=== PATIENT | male | born 1935 | race Caucasian/White ===

== ENCOUNTER 2016-09-27 11:12 | Inpatient (IN) | payer MEDICARE, OTHER ==
[~2016-09-27] VITALS: Ht 177.8 cm; Wt 79.0 kg
[2016-09-27] VITALS (10 sets, daily range): BP systolic 128–159; BP diastolic 47–77; PULSE 76–112; RESP 16–20; TEMP 96–97.4; O2SAT 93–96
--- NOTE | 2016-09-27 11:41 | PD ---
HPI Chief Complaint: General Weakness Time Seen by Provider: 11:31 Travel History International Travel<30 days: No Contact w/Intl Traveler<30days: No Traveled to known affect area: No History of Present Illness HPI Patient presents with complaints of gradual dyspnea and weakness over several weeks. Reports a history of hypertension with medication which he stopped recently secondary to hypotension. History of pulmonary embolism on no anticoagulation. 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 Recent PET scan reveals extensive metastatic adenopathy involving the peritoneum omentum and mesentery with metastatic lymph nodes. Recent biopsy of a growth on his left forearm reveals lymphoma. Denies any specific pain. States he has not been eating or drinking well. PFSH Past Medical History Cancer: Yes (RECENT DX METASTATIC LYMPHOMA) Hypertension: Yes Neurologic: Yes (POST POLIO SYNDROME) Respiratory: Yes (PE) Ulcer: Yes Influenza Vaccination: Yes Past Surgical History Cholecystectomy: Yes Social History Alcohol Use: No Tobacco Use: No Substance Use: No Allergies-Medications (Allergen,Severity, Reaction): Coded Allergies: No Known Allergies (Unverified , 09/27/16) Reported Meds & Prescriptions Reported Meds & Active Scripts Active No Active Prescriptions or Reported Medications Review of Systems General / Constitutional: No: Fever Eyes: No: Visual changes HENT: No: Headaches Cardiovascular: No: Chest Pain or Discomfort Respiratory: Positive: Shortness of Breath Gastrointestinal: Positive: Loss of Appetite, No: Abdominal Pain Genitourinary: No: Dysuria Musculoskeletal: No: Pain Skin: No Rash Neurologic: No: Weakness Psychiatric: No: Depression Endocrine: No: Polydipsia Hematologic/Lymphatic: No: Easy Bruising Physical Exam Narrative GENERAL: Well-nourished, well-developed patient. SKIN: Focused skin assessment warm/dry. HEAD: Normocephalic. EYES: No scleral icterus. No injection or drainage. NECK: Supple, trachea midline. No JVD or lymphadenopathy. CARDIOVASCULAR: Regular rate and rhythm without murmurs, gallops, or rubs. Tachycardic RESPIRATORY: Breath sounds mildly diminished. No accessory muscle use. GASTROINTESTINAL: Abdomen distended, nontender MUSCULOSKELETAL: No cyanosis, or edema. BACK: Nontender without obvious deformity. No CVA tenderness. Large area of lymphoma noted left forearm measuring approximately 8 x 4 cm Muscle wasting and brace noted left lower extremity Data Data Last Documented VS Vital Signs Date Time Temp Pulse Resp B/P Pulse Ox O2 Delivery O2 Flow Rate FiO2 09/27/16 12:25 93 Nasal Cannula 4 09/27/16 12:25 76 20 136/47 09/27/16 11:21 97.4 Orders Complete Blood Count With Diff (09/27/16 11:31) Comprehensive Metabolic Panel (09/27/16 11:31) B-Type Natriuretic Peptide (09/27/16 11:31) D-Dimer (09/27/16 11:31) Magnesium (Mg) (09/27/16 11:31) Urinalysis - C+S If Indicated (09/27/16 11:31) Iv Access Insert/Monitor (09/27/16 11:31) Ecg Monitoring (09/27/16 11:31) Oximetry (09/27/16 11:31) Oxygen Administration (09/27/16 11:31) Chest, Single Ap (09/27/16 11:31) Ct Pulmonary Angiogram (09/27/16 11:31) Sodium Chloride 0.9% Flush (Ns Flush) (09/27/16 11:45) Sodium Chlorid 0.9% 500 Ml Inj (Ns 500 M (09/27/16 11:45) Iohexol 350 Inj (Omnipaque 350 Inj) (09/27/16 13:14) Sodium Chlorid 0.9% 500 Ml Inj (Ns 500 M (09/27/16 13:45) Blood Culture (09/27/16 13:53) Azithromycin Inj (Zithromax Inj) (09/27/16 14:00) Ceftriaxone Inj (Rocephin Inj) (09/27/16 14:00) Methylprednisolone So Succ Inj (Solumedr (09/27/16 14:00) Admit To Inpatient (09/27/16 ) Vital Signs (Adult) Q4H (09/27/16 14:12) Activity Oob With Assistance (09/27/16 14:12) Rivet Thrower / Telemetry .CONTINUOUS (09/27/16 14:12) Diet Regular Basic (09/27/16 Dinner) Sodium Chloride 0.9% Flush (Ns Flush) (09/27/16 14:15) Sodium Chloride 0.9% Flush (Ns Flush) (09/27/16 21:00) Ondansetron Inj (Zofran Inj) (09/27/16 14:15) Basic Metabolic Panel (Bmp) (09/28/16 06:00) Complete Blood Count With Diff (09/28/16 06:00) Enoxaparin Inj (Lovenox Inj) (09/27/16 15:00) Naloxone Inj (Narcan Inj) (09/27/16 14:15) Inpatient Certification (09/27/16 ) Admit Order (Ed Use Only) (09/27/16 ) Vital Signs (Adult) Q4H (09/27/16 14:09) Diet Heart Healthy (09/27/16 Dinner) Activity Oob With Assistance (09/27/16 14:09) ^ Saline Lock (09/27/16 14:09) Resp Oxygen Jeff C Titrat 1-4 L (09/27/16 ) Notify Dr: Other (09/27/16 14:09) Ondansetron Inj (Zofran Inj) (09/27/16 14:15) Acetaminophen (Tylenol) (09/27/16 14:15) Sodium Chloride 0.9% Flush (Ns Flush) (09/27/16 21:00) Sodium Chloride 0.9% Flush (Ns Flush) (09/27/16 14:15) Labs Laboratory Tests Test 09/27/16 11:30 White Blood Count 11.8 TH/MM3 Red Blood Count 4.41 MIL/MM3 Hemoglobin 13.1 GM/DL Hematocrit 38.7 % Mean Corpuscular Volume 87.8 FL Mean Corpuscular Hemoglobin 29.8 PG Mean Corpuscular Hemoglobin 33.9 % Concent Red Cell Distribution Width 13.7 % Platelet Count 311 TH/MM3 Mean Platelet Volume 8.1 FL Neutrophils (%) (Auto) 83.1 % Lymphocytes (%) (Auto) 6.2 % Monocytes (%) (Auto) 7.7 % Eosinophils (%) (Auto) 1.3 % Basophils (%) (Auto) 1.7 % Neutrophils # (Auto) 9.8 TH/MM3 Lymphocytes # (Auto) 0.7 TH/MM3 Monocytes # (Auto) 0.9 TH/MM3 Eosinophils # (Auto) 0.2 TH/MM3 Basophils # (Auto) 0.2 TH/MM3 CBC Comment AUTO DIFF Differential Total Cells 100 Counted Neutrophils % (Manual) 83 % Band Neutrophils % 4 % Lymphocytes % 4 % Monocytes % 6 % Eosinophils % 2 % Basophils % 1 % Neutrophils # (Manual) 10.3 TH/MM3 Differential Comment FINAL DIFF MANUAL Platelet Estimate NORMAL Platelet Morphology Comment NORMAL Red Cell Morphology Comment NORMAL D-Dimer Quantitative (PE/DVT) 2.52 MG/L FEU Sodium Level 141 MEQ/L Potassium Level 3.6 MEQ/L Chloride Level 103 MEQ/L Carbon Dioxide Level 26.7 MEQ/L Anion Gap 11 MEQ/L Blood Urea Nitrogen 30 MG/DL Creatinine 1.20 MG/DL Estimat Glomerular Filtration 58 ML/MIN Rate Random Glucose 128 MG/DL Calcium Level 9.1 MG/DL Magnesium Level 2.1 MG/DL Total Bilirubin 1.2 MG/DL Aspartate Amino Transf 49 U/L (AST/SGOT) Alanine Aminotransferase 29 U/L (ALT/SGPT) Alkaline Phosphatase 79 U/L B-Type Natriuretic Peptide 32 PG/ML Total Protein 6.5 GM/DL Albumin 2.7 GM/DL MDM Medical Decision Making Medical Screen Exam Complete: Yes Emergency Medical Condition: Yes Differential Diagnosis Metastatic lung cancer, pulmonary embolism, dehydration, sinus tachycardia, hypertension, heart failure Narrative Course Assessment and plan discussed with patient at bedside. Initial EKG reveals sinus tachycardia with frequent PVCs rate of 130. Last 72 hours Impressions Chest X-Ray 09/27/161130 Signed Impressions: Service Date/Time: Tuesday, September 27, 2016 11:43 - CONCLUSION: No acute cardiopulmonary disease identified. Edy Jefferson MD CT Angiography 09/27/16 113 Signed Impressions: Service Date/Time: Tuesday, September 27, 2016 12:45 - CONCLUSION: 1. No evidence of pulmonary embolus. 2. Mild right lower lobe consolidation and small right pleural effusion. Mild left lower lobe atelectasis. 3. Coronary artery calcification. 4. Mildly prominent as azygoesophageal lymph node likely reactive. Edy Jefferson MD Physician Communication Physician Communication Spoke with Dr Lopez who is in agreement will admit Diagnosis Primary Impression: RLL pneumonia Qualified Code: J18.1 - Pneumonia of right lower lobe due to infectious organism Additional Impressions: Leucocytosis Qualified Code: D72.829 - Leukocytosis, unspecified type Tachycardia Admitting Information Admitting Physician Requests: Admit Scripts No Active Prescriptions or Reported Meds Thomas Ramirez MD September 27, 2016 11:40
[2016-09-27 11:45] LABS: AUTOMATED NEUTROPHIL # 9.8 TH/MM3 (1.8-7.7); BASOPHIL # 0.2 TH/MM3 (0-0.2); BASOPHIL % 1.7 % (0.0-2.0); EOSINOPHIL # 0.2 TH/MM3 (0-0.4); EOSINOPHIL % 1.3 % (0.0-4.0); HEMATOCRIT 38.7 % (39.0-51.0); LYMPH % 6.2 % (9.0-44.0); LYMPHOCYTE # 0.7 TH/MM3 (1.0-4.8); MEAN CELL VOLUME 87.8 FL (80.0-100.0); MEAN CORPUSCULAR HEMOGLOBIN 29.8 PG (27.0-34.0); MEAN CORPUSCULAR HGB CONC 33.9 % (32.0-36.0); MONO % 7.7 % (0.0-8.0); NEUT % 83.1 % (16.0-70.0); PLATELET COUNT 311 TH/MM3 (150-450); RED BLOOD COUNT 4.41 MIL/MM3 (4.50-5.90); RED CELL DISTRIBUTION WIDTH 13.7 % (11.6-17.2); WHITE BLOOD COUNT 11.8 TH/MM3 (4.0-11.0)
[2016-09-27] MEDS ORDERED: SODIUM CHLORID 0.9% 500 ML INJ 500 ML IV ONE ×2 (11:45→13:45)
[2016-09-27] MEDS ORDERED: SODIUM CHLORIDE 0.9% FLUSH 10 ML FLUSH IVF PRN ×2 (11:45→14:15)
[2016-09-27 11:54] LABS: HEMO FLAGS AUTO DIFF
[2016-09-27 12:07] LABS: BANDS 4 % (0-6); BASOPHILS 1 % (0-2); CHLORIDE 103 MEQ/L (98-107); EOSINOPHILS 2 % (0-4); NEUTROPHIL # MANUAL DIFF 10.3 TH/MM3 (1.8-7.7); PLATELET ESTIMATE SMEAR NORMAL (NORMAL); PLATELET MORPHOLOGY NORMAL (NORMAL); POLYS (SEG NEUTROPHILS) 83 % (16-70); POTASSIUM 3.6 MEQ/L (3.5-5.1); SCAN/DIFF FINAL DIFF MANUAL; SODIUM (NA) 141 MEQ/L (136-145); WBC DIFF SAMPLE 100
[2016-09-27 12:11] LABS: ANION GAP 11 MEQ/L (5-15); BICARBONATE 26.7 MEQ/L (21.0-32.0); BLOOD UREA NITROGEN 30 MG/DL (7-18); MAGNESIUM 2.1 MG/DL (1.5-2.5)
[2016-09-27 12:14] LABS: ALT (GPT) 29 U/L (12-78); AST (GOT) 49 U/L (15-37); GLOMERULAR FILTRATION RATE 58 ML/MIN (>89)
[2016-09-27 12:15] LABS: TOTAL BILIRUBIN ADULT 1.2 MG/DL (0.2-1.0)
[2016-09-27 12:17] LABS: ALKALINE PHOSPHATASE 79 U/L (45-117)
--- NOTE | 2016-09-27 12:48 | RADHPO ---
EXAM DATE/TIME: 09/27/2016 11:43 [facility] COMPARISON: No previous studies available for comparison. INDICATIONS : Shortness of breath, weakness. MEDICAL HISTORY : Lymphoma. Pulmonary emboli. Abdominal mass. SURGICAL HISTORY : Cholecystectomy. ENCOUNTER: Initial ACUITY: 1 day PAIN SCORE: 0/10 LOCATION: Chest. FINDINGS: Single AP view of the chest. The lungs are clear. Cardiomediastinal silhouette within normal limits. No evidence of pleural effusion or pneumothorax. CONCLUSION: No acute cardiopulmonary disease identified. Edy Jefferson MD on September 27, 2016 at 12:46 Board Certified Radiologist. This report was verified electronically.
[2016-09-27] MEDS ORDERED: IOHEXOL 350 MG/ML 10 ML VIAL (for RAD DIAG) IV ONE (13:14)
--- NOTE | 2016-09-27 13:50 | RADHPO ---
EXAM DATE/TIME: 09/27/2016 12:45 [facility] COMPARISON: No previous studies available for comparison. INDICATIONS : Increased dyspnea and weakness; recent diagnosis of metastatic lymphoma. IV CONTRAST: 73 cc Omnipaque 350 (iohexol) IV RADIATION DOSE: 18.98 CTDIvol (mGy) MEDICAL HISTORY : Lymphoma. Hypertension. Ulcers.Pulmonary embolism. SURGICAL HISTORY : None. ENCOUNTER: Initial ACUITY: 2 weeks PAIN SCALE: 0/10 LOCATION: chest TECHNIQUE: Volumetric scanning of the chest was performed using a pulmonary embolism protocol MIP images were re constructed. Using automated exposure control and adjustment of the mA and/or kV according to patien t size, radiation dose was kept as low as reasonably achievable to obtain optimal diagnostic quality images. FINDINGS: PULMONARY ARTERIES: No filling defects are seen in the pulmonary arteries through the segmental level. LUNGS: Inferior right lower lobe consolidation. Mild bilateral pulmonary parenchymal emphysema. Mild left lo wer lobe atelectasis. PLEURAE: Small right pleural effusion. MEDIASTINUM: Coronary artery calcifications. Diffuse aortic calcification. 1.1 x 0.8 cm azygoesophageal lymph node . MUSCULOSKELETAL: Within normal limits for patient age. MISCELLANEOUS: Small amount of ascites in the upper abdomen. CONCLUSION: 1. No evidence of pulmonary embolus. 2. Mild right lower lobe consolidation and small right pleural effusion. Mild left lower lobe atelect asis. 3. Coronary artery calcification. 4. Mildly prominent as azygoesophageal lymph node likely reactive. Edy Jefferson MD on September 27, 2016 at 13:43 Board Certified Radiologist. This report was verified electronically.
[2016-09-27] MEDS ORDERED: AZITHROMYCIN INJ 500 MG in SODIUM CHLOR 0.9% 250 ML INJ 250 ML IV ONE (14:00)
[2016-09-27] MEDS ORDERED: methylPREDNISolone SOD SUCC 125 MG/2 ML VIAL IV PUSH ONE (14:00)
[2016-09-27] MEDS ORDERED: cefTRIAXone INJ 1,000 MG in SODIUM CHLORIDE 0.9% INJ 100 ML IV ONE (14:00)
[2016-09-27] MEDS ORDERED: ONDANSETRON HCL 4 MG/2 ML VIAL IVP PRN (14:15)
[2016-09-27] MEDS ORDERED: NALOXONE HCL 0.4 MG/ML AMP IV PRN (14:15)
[2016-09-27] MEDS ORDERED: SODIUM CHLORIDE 0.9% FLUSH 10 ML FLUSH IV FLUSH PRN (14:15)
[2016-09-27] MEDS ORDERED: ONDANSETRON HCL 4 MG/2 ML VIAL IV PRN (14:15)
[2016-09-27] MEDS ORDERED: ACETAMINOPHEN 325 MG TAB PO PRN (14:15)
[2016-09-27] MEDS ORDERED: ENOXAPARIN SODIUM 40 MG/0.4 ML SYRINGE SQ SCH (15:00)
--- NOTE | 2016-09-27 15:39 | HHI.HP ---
HPI Service [facility] Primary Care Physician Gen Slaughter DO Admission Diagnosis RLL pneumonia Diagnoses: (1) RLL pneumonia (2) Tachycardia (3) Leucocytosis (4) Lymphoma (5) HTN (hypertension) Travel History International Travel<30 Days: No Contact w/Intl Traveler <30 Da: No Traveled to Known Affected Are: No Sepsis Criteria SIRS Criteria (2 or more): Heart rate over 90, RR > 20 or PaCO2 < 32 Sepsis Criteria (SIRS+source): Infect source susp/known History of Present Illness Mr. Rivera is a 81 year old male. He has lymphoma at baseline. Over the past several days he has been feeling fatigue and weakness and for about one week she has been having intermittent sweats. He is not aware of any fever. She denies chills. Imaging in the ER shows a right lower lobe pneumonia. Tachycardia, tachypnea, and a known source qualifies him for sepsis. D-dimer was elevated but CTA of chest shows no pulmonary embolism. The CTA did confirm pneumonia right lower lobe. At baseline he has hypertension and lymphoma with a mass burden in the abdomen. Past surgical histories of cholecystectomy and ulcer surgery of the stomach. She has had a pulmonary embolism in 2013. Tachycardia and tachypnea remaining ones seen. No fevers so far. No other complaints from the patient. Since lymphoma was discovered his blood pressure has been lower and he has been off of all his blood pressure medications. Review of Systems Constitutional: COMPLAINS OF: Fatigue, Night Sweats, DENIES: Fever, Chills Endocrine: DENIES: Heat/cold intolerance, Polyphagia Eyes: DENIES: Blurred vision, Diplopia Ears, nose, mouth, throat: DENIES: Hearing loss, Vertigo Respiratory: COMPLAINS OF: Shortness of breath, DENIES: Cough, Wheezing Cardiovascular: DENIES: Chest pain, Palpitations, Syncope Gastrointestinal: COMPLAINS OF: Abdominal pain Musculoskeletal: DENIES: Joint pain, Muscle aches Integumentary: DENIES: Abnormal pigmentation Hematologic/lymphatic: DENIES: Bruising Immunologic/allergic: DENIES: Eczema Neurologic: DENIES: Abnormal gait, Headache Psychiatric: DENIES: Anxiety, Confusion, Mood changes Past Family Social History Past Medical History Hypertension Lymphoma History of pulmonary malaise and History of ulcer Past Surgical History Stomach ulcer surgery Cholecystectomy Reported Medications Reported Meds & Active Scripts Active No Active Prescriptions or Reported Medications Allergies: Coded Allergies: No Known Allergies (Unverified , 09/27/16) Family History His father had a known heart disease and COPD Social History No smoking, no alcohol, no drug use. Physical Exam Vital Signs Vital Signs Date Time Temp Pulse Resp B/P Pulse Ox O2 Delivery O2 Flow Rate FiO2 09/27/16 14:30 95 Nasal Cannula 3.00 09/27/16 14:20 111 18 139/52 94 Nasal Cannula 4 09/27/16 12:25 93 Nasal Cannula 4 09/27/16 12:25 76 20 136/47 93 Nasal Cannula 4 09/27/16 11:30 95 Nasal Cannula 2 09/27/16 11:30 95 Nasal Cannula 2 09/27/16 11:30 115 22 95 Nasal Cannula 2 09/27/16 11:21 97.4 102 20 159/77 94 Physical Exam GENERAL: NAD, A&Ox3 SKIN: Warm and dry. HEAD: Normocephalic. EYES: No scleral icterus. No injection or drainage. NECK: Supple, trachea midline. No JVD or lymphadenopathy. CARDIOVASCULAR: Mild tachycardia without murmurs, gallops, or rubs. RESPIRATORY: Breath sounds equal bilaterally. No accessory muscle use. GASTROINTESTINAL: Abdomen soft, non-tender, nondistended. MUSCULOSKELETAL: No cyanosis, or edema. Laboratory Laboratory Tests Test 09/27/16 11:30 White Blood Count 11.8 Red Blood Count 4.41 Hemoglobin 13.1 Hematocrit 38.7 Mean Corpuscular Volume 87.8 Mean Corpuscular Hemoglobin 29.8 Mean Corpuscular Hemoglobin 33.9 Concent Red Cell Distribution Width 13.7 Platelet Count 311 Mean Platelet Volume 8.1 Neutrophils (%) (Auto) 83.1 Lymphocytes (%) (Auto) 6.2 Monocytes (%) (Auto) 7.7 Eosinophils (%) (Auto) 1.3 Basophils (%) (Auto) 1.7 Neutrophils # (Auto) 9.8 Lymphocytes # (Auto) 0.7 Monocytes # (Auto) 0.9 Eosinophils # (Auto) 0.2 Basophils # (Auto) 0.2 CBC Comment AUTO DIFF Differential Total Cells 100 Counted Neutrophils % (Manual) 83 Band Neutrophils % 4 Lymphocytes % 4 Monocytes % 6 Eosinophils % 2 Basophils % 1 Neutrophils # (Manual) 10.3 Differential Comment FINAL DIFF MANUAL Platelet Estimate NORMAL Platelet Morphology Comment NORMAL Red Cell Morphology Comment NORMAL D-Dimer Quantitative (PE/DVT) 2.52 Sodium Level 141 Potassium Level 3.6 Chloride Level 103 Carbon Dioxide Level 26.7 Anion Gap 11 Blood Urea Nitrogen 30 Creatinine 1.20 Estimat Glomerular Filtration 58 Rate Random Glucose 128 Calcium Level 9.1 Magnesium Level 2.1 Total Bilirubin 1.2 Aspartate Amino Transf 49 (AST/SGOT) Alanine Aminotransferase 29 (ALT/SGPT) Alkaline Phosphatase 79 B-Type Natriuretic Peptide 32 Total Protein 6.5 Albumin 2.7 Date/Time Procedure Status Source Growth 09/27/16 14:15 Aerobic Blood Culture Received Blood Peripheral Pending 09/27/16 14:15 Anaerobic Blood Culture Received Blood Peripheral Pending Result Diagram: 09/27/16 1130 09/27/16 1130 Imaging Last Impressions Chest X-Ray 09/27/16 1131 Signed Impressions: Service Date/Time: Tuesday, September 27, 2016 11:43 - CONCLUSION: No acute cardiopulmonary disease identified. Edy Jefferson MD CT Angiography 09/27/16 1131 Signed Impressions: Service Date/Time: Tuesday, September 27, 2016 12:45 - CONCLUSION: 1. No evidence of pulmonary embolus. 2. Mild right lower lobe consolidation and small right pleural effusion. Mild left lower lobe atelectasis. 3. Coronary artery calcification. 4. Mildly prominent as azygoesophageal lymph node likely reactive. Edy Jefferson MD Septic Shock Reassessment Heart: Other (tachycardia) Lungs: Clear Skin: Warm Peripheral Pulses: Bounding Right Radial Bounding Left Radial Capillary Refill: Brisk Assessment and Plan Problem List: (1) HTN (hypertension) ICD Code: I10 Status: Acute (2) Lymphoma ICD Code: C85.90 Status: Acute (3) RLL pneumonia ICD Code: J18.1 Status: Acute (4) Tachycardia ICD Code: R00.0 Status: Acute (5) Leucocytosis ICD Code: D72.829 Status: Acute Assessment and Plan Right lower lobe pneumonia Sepsis Rocephin Azithromycin Probiotics Oxygen as needed Follow clinically for improvement Monitor CBC Monitor to tachycardia and tachypnea are resolved Ensure no fevers Some degree of immune compromise is present given burden of lymphoma Lymphoma Follow clinically Follow with outpatient oncology Not on active chemotherapy at this time Hypertension Follow blood pressures Not currently on treatment History of ulcer Daily Protonix for prophylaxis DVT prophylaxis History of pulmonary embolus Lovenox Physician Certification 2 Midnight Certification Type: Admission for Inpatient Services Order for Inpatient Services The services are ordered in accordance with Medicare regulations or non- Medicare payer requirements, as applicable. In the case of services not specified as inpatient-only, they are appropriately provided as inpatient services in accordance with the 2-midnight benchmark. Estimated LOS (days): 2 days is the estimated time the patient will need to remain in the hospital, assuming treatment plan goals are met and no additional complications. Post-Hospital Plan: Home Problem Qualifiers (1) RLL pneumonia: Qualified Code: J18.1 - Pneumonia of right lower lobe due to infectious organism (2) Leucocytosis: Qualified Code: D72.829 - Leukocytosis, unspecified type Hong Lopez MD September 27, 2016 3:39 pm
[2016-09-27] MEDS ORDERED: DORZ2SOL EACH EYE (15:58)
[2016-09-27] MEDS: LACTOBACILLUS ACIDOPHILUS TAB PO SCH (17:00)
[2016-09-27] MEDS ORDERED: HYDROmorphone HCL PF 1 MG/ML VIAL IV PUSH PRN (17:30)
[2016-09-27] MEDS ORDERED: METOCLOPRAMIDE HCL 10 MG/2 ML VIAL IV PUSH PRN (17:30)
[2016-09-27] MEDS ORDERED: ALUMINUM/MAGNESIUM/SIMETH 30 ML CUP PO PRN (17:30)
[2016-09-27] MEDS: SODIUM CHLORIDE 0.9% FLUSH 10 ML FLUSH IV FLUSH SCH ×2 (21:00→21:33)
[2016-09-27] MEDS: DORZOLAMIDE 2% OPTH SOLN 200 DROP/10 ML BTLO EACH EYE SCH (21:32)
[2016-09-27 22:21] LABS: BLOOD, URINE TRACE (NEG); GLUCOSE,URINE 100 mg/dL (NEG); KETONE, URINE 15 mg/dL (NEG); NITRITE,URINE NEG (NEG); PH, URINE 5.5 (5.0-8.5)
[2016-09-27 22:28] LABS: URINE COLOR AMBER (YELLW/STRAW)
[2016-09-27 22:29] LABS: SQUAMOUS EPITHELIAL CELL URINE 0-5 /hpf (0-5); WBC, URINE 0-2 /hpf (0-5)
[2016-09-27 22:30] LABS: COMMENT (UR) CULT NOT INDICATED; CULTURE IF INDICATED CULT NOT INDICATED
[2016-09-28 00:44] VITALS: BP 125/72; PULSE 85; RESP 22; TEMP 96.1; O2SAT 95
[2016-09-28 04:09] VITALS: BP 116/72; PULSE 92; RESP 14; TEMP 98.2; O2SAT 95
[2016-09-28 07:50] LABS: AUTOMATED NEUTROPHIL # 7.5 TH/MM3 (1.8-7.7); BASOPHIL % 0.2 % (0.0-2.0); EOSINOPHIL % 0.5 % (0.0-4.0); HEMATOCRIT 36.2 % (39.0-51.0); HEMO FLAGS DIFF FINAL; LYMPH % 6.6 % (9.0-44.0); LYMPHOCYTE # 0.6 TH/MM3 (1.0-4.8); MEAN CELL VOLUME 88.2 FL (80.0-100.0); MEAN CORPUSCULAR HEMOGLOBIN 30.3 PG (27.0-34.0); MEAN CORPUSCULAR HGB CONC 34.4 % (32.0-36.0); NEUT % 86.7 % (16.0-70.0); PLATELET COUNT 299 TH/MM3 (150-450); RED BLOOD COUNT 4.11 MIL/MM3 (4.50-5.90); RED CELL DISTRIBUTION WIDTH 13.7 % (11.6-17.2); WHITE BLOOD COUNT 8.6 TH/MM3 (4.0-11.0)
[2016-09-28 07:52] LABS: POTASSIUM 4.2 MEQ/L (3.5-5.1)
[2016-09-28 07:55] LABS: BICARBONATE 26.1 MEQ/L (21.0-32.0)
[2016-09-28 08:00] VITALS: BP 131/74; PULSE 96; RESP 20; TEMP 96.9; O2SAT 93; O2SAT 95
[2016-09-28] MEDS: DORZOLAMIDE 2% OPTH SOLN 200 DROP/10 ML BTLO EACH EYE SCH (08:51)
[2016-09-28] MEDS: SODIUM CHLORIDE 0.9% FLUSH 10 ML FLUSH IV FLUSH SCH ×2 (08:51→08:52)
[2016-09-28] MEDS: LACTOBACILLUS ACIDOPHILUS TAB PO SCH ×2 (08:52→11:29)
[2016-09-28] MEDS ORDERED: PANTOPRAZOLE SOD 40 MG DELAYED RELEASE TAB PO SCH (09:00)
[2016-09-28] MEDS ORDERED: AZIT500T2 PO (10:37)
[2016-09-28] MEDS ORDERED: AUGM875T PO (10:37)
[2016-09-28] MEDS ORDERED: LACTTAB8 PO (10:37)
--- NOTE | 2016-09-28 10:41 | HHI.DS ---
Discharge Summary Admission Date September 27, 2016 at 2:31 pm Discharge Date: September 28, 2016 Admitting Diagnosis RLL pneumonia (1) HTN (hypertension) ICD Code: I10 Diagnosis: Secondary (2) Lymphoma ICD Code: C85.90 Diagnosis: Secondary (3) RLL pneumonia ICD Code: J18.1 Diagnosis: Principal (4) Tachycardia ICD Code: R00.0 Diagnosis: Secondary (5) Leucocytosis ICD Code: D72.829 Diagnosis: Secondary Procedures none Brief History - From Admission Mr. Rivera is a 81 year old male. He has lymphoma at baseline. Over the past several days he has been feeling fatigue and weakness and for about one week she has been having intermittent sweats. He is not aware of any fever. She denies chills. Imaging in the ER shows a right lower lobe pneumonia. Tachycardia, tachypnea, and a known source qualifies him for sepsis. D-dimer was elevated but CTA of chest shows no pulmonary embolism. The CTA did confirm pneumonia right lower lobe. At baseline he has hypertension and lymphoma with a mass burden in the abdomen. Past surgical histories of cholecystectomy and ulcer surgery of the stomach. She has had a pulmonary embolism in 2013. Tachycardia and tachypnea remaining ones seen. No fevers so far. No other complaints from the patient. Since lymphoma was discovered his blood pressure has been lower and he has been off of all his blood pressure medications. CBC/BMP: 09/28/16 0719 09/28/16 0719 Significant Findings Laboratory Tests Test 09/27/16 09/27/16 09/28/16 11:30 21:00 07:19 White Blood Count 11.8 TH/MM3 (4.0-11.0) Red Blood Count 4.41 MIL/MM3 4.11 MIL/MM3 (4.50-5.90) (4.50-5.90) Hematocrit 38.7 % 36.2 % (39.0-51.0) (39.0-51.0) Neutrophils (%) (Auto) 83.1 % 86.7 % (16.0-70.0) (16.0-70.0) Lymphocytes (%) (Auto) 6.2 % 6.6 % (9.0-44.0) (9.0-44.0) Neutrophils # (Auto) 9.8 TH/MM3 (1.8-7.7) Lymphocytes # (Auto) 0.7 TH/MM3 0.6 TH/MM3 (1.0-4.8) (1.0-4.8) Neutrophils % (Manual) 83 % (16-70) Lymphocytes % 4 % (9-44) Neutrophils # (Manual) 10.3 TH/MM3 (1.8-7.7) D-Dimer Quantitative (PE/DVT) 2.52 MG/L FEU (0.00-0.50) Blood Urea Nitrogen 30 MG/DL (7-18) 34 MG/DL (7-18) Estimat Glomerular Filtration 58 ML/MIN (>89) 72 ML/MIN (>89) Rate Random Glucose 128 MG/DL 170 MG/DL (74-106) (74-106) Total Bilirubin 1.2 MG/DL (0.2-1.0) Aspartate Amino Transf 49 U/L (15-37) (AST/SGOT) Albumin 2.7 GM/DL (3.4-5.0) Urine Color DEON (YELLW/STRAW) Urine Specific [place] GREATER THAN 1.035 (1.002-1.035) Urine Protein 30 mg/dL (NEG-TRACE) Urine Glucose (UA) 100 mg/dL (NEG) Urine Ketones 15 mg/dL (NEG) Urine Occult Blood TRACE (NEG) Urine RBC 4-9 /hpf (0-3) Hemoglobin 12.5 GM/DL (13.0-17.0) PE at Discharge GENERAL: NAD, A&Ox3 SKIN: Warm and dry. HEAD: Normocephalic. EYES: No scleral icterus. No injection or drainage. NECK: Supple, trachea midline. No JVD or lymphadenopathy. CARDIOVASCULAR: Regular rate and rhythm without murmurs, gallops, or rubs. RESPIRATORY: Breath sounds equal bilaterally. No accessory muscle use. GASTROINTESTINAL: Abdomen soft, non-tender, distention secondary to mass effect (baseline) MUSCULOSKELETAL: No cyanosis, or edema. Hospital Course Mr. Rivera is a 81-year-old male who was admitted here with right lower lobe pneumonia. Sepsis was present admitted but has resolved now. He has resolution of his leukocytosis and respirations and heart rate have returned to his baseline. He has exhibited no fevers. His symptoms which included abdominal pain and nausea with vomiting have resolved. Lymphoma is present and complicated his scenario. The patient would like to leave so he can keep his oncology appointment tomorrow. At this point with resolution of sepsis and resolution of his symptoms she is medically stable for discharge. She will continue on azithromycin and Augmentin for 7 more days. Probiotics provided. Pt Condition on Discharge: Stable Discharge Disposition: Discharge Home Discharge Time: <= 30 minutes Discharge Instructions Follow up Referrals: Oncology - Next Day PCP Follow-up - 1 Week New Medications: Amoxicillin-Clavulanate (Augmentin) 875-125 mg Tab 875 MG PO BID not for use in CrCl <30 ml/min. Infection #14 Ref 0 TAB Azithromycin (Azithromycin) 500 Mg Tab 500 MG PO DAILY Infection #7 Ref 0 TAB Lactobacillus Acidophilus (Lactobacillus Acidophilus) 1 Tab Tab 1 TAB PO TIDAC Nutritional Supplement #30 Ref 0 TAB Continued Medications: Dorzolamide Opth Drops (Dorzolamide Opth Drops) 2% Soln 1 DROP EACH EYE BID Glaucoma #1 Ref 0 BOTTLE Hong Lopez MD September 28, 2016 10:41 am
[2016-09-28] MEDS ORDERED: cefTRIAXone INJ 1,000 MG in SODIUM CHLORIDE 0.9% INJ 100 ML IV SCH ×2 (11:00→13:00)
[2016-09-28 12:00] VITALS: BP 116/72; PULSE 92; RESP 20; TEMP 96.5; O2SAT 93
[2016-09-28] MEDS ORDERED: AZITHROMYCIN INJ 500 MG in SODIUM CHLOR 0.9% 250 ML INJ 250 ML IV SCH ×2 (12:00→14:00)
--- NOTE | 2016-09-28 16:55 | EKG ---
Date Performed: 09/27/2016 Time Performed: 11:16:22 PTAGE: 81 years EKG: Irregular supraventricular tachycardia, most likely sinus tachycardia with PACs and PVCs Le ft axis deviation Nonspecific ST-T wave changes Abnormal ECG NO PREVIOUS TRACING DOCTOR: Eveline Damon Interpretating Date/Time 09/28/2016 16:52:44
== END 2016-09-28 15:34 | disposition home or self-care (01) | DRG 871 ==
LOC: PHED 11:12 → PHEDA 14:31 → PH3B 15:00
PROVIDERS: ADMIT Hospitalist; ATTEND Hospitalist
DX: A41.9 Sepsis, unspecified organism (principal); J18.9 Pneumonia, unspecified organism; C85.93 Non-Hodgkin lymphoma, unspecified, intra-abdominal lymph nodes; B91 Sequelae of poliomyelitis; I10 Essential (primary) hypertension; Z86.711 Personal history of pulmonary embolism
CPT/HCPCS: 71010; 71275; 80048; 80053; 81001; 83735; 83880; 85007; 85025; 85027; 85379; 87040; 93005; 96360; J0456; J0696; J1170; J1650; J2765; J2930; J7040; J7050; Q9967

== ENCOUNTER 2017-02-18 07:46 | Observation (INO) | payer MEDICARE, OTHER ==
[~2017-02-18] VITALS: Ht 177.8 cm; Wt 69.5 kg
[2017-02-18] VITALS (7 sets, daily range): BP systolic 118–156; BP diastolic 52–84; PULSE 94–114; RESP 18–21; TEMP 95.4–100; O2SAT 90–98
[~2017-02-18 07:46] MED LIST: AUGM875T PO; AZIT500T2 PO; DORZ2SOL EACH EYE; LACTTAB8 PO
[2017-02-18] MEDS ORDERED: SODIUM CHLOR 0.9% 1000 ML INJ 1,000 ML IV ONE ×2 (07:49→08:45)
[2017-02-18] MEDS ORDERED: ACETAMINOPHEN 325 MG TAB PO ONE ×2 (08:00→09:45)
[2017-02-18 08:06] LABS: AUTOMATED NEUTROPHIL # 8.5 TH/MM3 (1.8-7.7); BASOPHIL # 0.1 TH/MM3 (0-0.2); BASOPHIL % 0.9 % (0.0-2.0); EOSINOPHIL # 0.1 TH/MM3 (0-0.4); EOSINOPHIL % 0.9 % (0.0-4.0); HEMATOCRIT 32.6 % (39.0-51.0); HEMO FLAGS DIFF FINAL; LYMPH % 2.7 % (9.0-44.0); LYMPHOCYTE # 0.3 TH/MM3 (1.0-4.8); MEAN CELL VOLUME 92.5 FL (80.0-100.0); MEAN CORPUSCULAR HEMOGLOBIN 30.3 PG (27.0-34.0); MEAN CORPUSCULAR HGB CONC 32.8 % (32.0-36.0); MONO % 8.9 % (0.0-8.0); NEUT % 86.6 % (16.0-70.0); PLATELET COUNT 195 TH/MM3 (150-450); RED BLOOD COUNT 3.53 MIL/MM3 (4.50-5.90); WHITE BLOOD COUNT 9.9 TH/MM3 (4.0-11.0)
[2017-02-18 08:15] LABS: CHLORIDE 106 MEQ/L (98-107); POTASSIUM 4.1 MEQ/L (3.5-5.1); SODIUM (NA) 139 MEQ/L (136-145)
[2017-02-18 08:18] LABS: ANION GAP 10 MEQ/L (5-15); APTT (PATIENT) 27.5 SEC (24.3-30.1); BICARBONATE 22.6 MEQ/L (21.0-32.0); INTERNATIONAL NORMALIZED RATIO 0.9 RATIO; PROTHROMBIN TIME - PATIENT 10.4 SEC (9.8-11.6)
[2017-02-18 08:19] LABS: BLOOD UREA NITROGEN 28 MG/DL (7-18)
[2017-02-18 08:21] LABS: ALT (GPT) 19 U/L (12-78); AST (GOT) 22 U/L (15-37)
[2017-02-18 08:22] LABS: GLOMERULAR FILTRATION RATE 88 ML/MIN (>89)
[2017-02-18 08:23] LABS: TOTAL BILIRUBIN ADULT 0.7 MG/DL (0.2-1.0)
[2017-02-18 08:24] LABS: ALKALINE PHOSPHATASE 70 U/L (45-117)
[2017-02-18 08:27] LABS: CREATINE KINASE 27 U/L (39-308)
--- NOTE | 2017-02-18 08:31 | PD ---
HPI Chief Complaint: Cold / Flu Symptoms Time Seen by Provider: 07:49 Travel History International Travel<30 days: No Contact w/Intl Traveler<30days: No Traveled to known affect area: No History of Present Illness HPI Patient is a 81 year old male who comes in complaining of shaking. He says that he woke up this morning with uncontrollable shaking. He says this happened once before about a week ago, but it went away quickly. Today it has been lasting. He denies feeling cold, but says he cannot stop shivering. He denies fever at home. He finished chemo for lymphoma three weeks ago. He says he was on antibiotics for a cough, which he finished yesterday. He still has the cough and some SOB. He denies any chest pain. He denies abdominal pain, nausea or vomiting. 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) Psychiatric: No Reproductive: No Respiratory: Yes (PE) Ulcer: Yes (hx of a bleeding ulcer) Influenza Vaccination: Yes ?: Not Past Surgical History Abdominal Surgery: Yes (gallbladder removed) Cholecystectomy: Yes Other Surgery: Yes Social History Alcohol Use: No Tobacco Use: No Substance Use: No Allergies-Medications (Allergen,Severity, Reaction): Coded Allergies: No Known Allergies (Unverified , 02/18/17) Reported Meds & Prescriptions Reported Meds & Active Scripts Active Reported Dorzolamide Opth Drops (Dorzolamide HCl) 2% Soln 1 Drop EACH EYE BID Review of Systems Except as stated in HPI: all other systems reviewed are Neg General / Constitutional: No: Fever, Chills Eyes: No: Blurred Vision HENT: No: Headaches, Lightheadedness Cardiovascular: No: Chest Pain or Discomfort Respiratory: Positive: Cough, Shortness of Breath Gastrointestinal: No: Nausea, Vomiting Genitourinary: No: Dysuria Musculoskeletal: No: Edema, Pain Skin: No Rash, No Itching Neurologic: No: Weakness, Dizziness, Syncope Physical Exam Narrative GENERAL: Awake and alert, in no acute distress, actively shivering. SKIN: Focused skin assessment warm/dry. HEAD: Atraumatic. Normocephalic. EYES: Pupils equal and round. No scleral icterus. EOMI. ENT: Mucous membranes pink and moist. NECK: Trachea midline. No JVD. CARDIOVASCULAR: Regular rate and rhythm. No murmur appreciated. RESPIRATORY: No accessory muscle use. Clear to auscultation. Breath sounds equal bilaterally. GASTROINTESTINAL: Abdomen soft, non-tender, nondistended. MUSCULOSKELETAL: No obvious deformities. No clubbing. No cyanosis. No edema. NEUROLOGICAL: Awake and alert. No obvious cranial nerve deficits. Motor grossly within normal limits. Normal speech. PSYCHIATRIC: Appropriate mood and affect; insight and judgment normal. Data Data Last Documented VS Vital Signs Date Time Temp Pulse Resp B/P (MAP) Pulse Ox O2 Delivery O2 Flow Rate FiO2 02/18/17 08:55 100.0 110 18 120/56 (77) 97 Nasal Cannula 2.00 Orders Orders Electrocardiogram (02/18/17 07:49) Complete Blood Count With Diff (02/18/17 07:49) Comprehensive Metabolic Panel (02/18/17 07:49) Prothrombin Time / Inr (Pt) (02/18/17 07:49) Act Partial Throm Time (Ptt) (02/18/17 07:49) Lactic Acid Sepsis Protocol (02/18/17 07:49) Lipase (02/18/17 07:49) Ckmb (Isoenzyme) Profile (02/18/17 07:49) Troponin I (02/18/17 07:49) Urinalysis - C+S If Indicated (02/18/17 07:49) Blood Culture (02/18/17 07:49) Chest, Single Ap (02/18/17 07:49) Blood Glucose (02/18/17 07:49) Ecg Monitoring (02/18/17 07:49) Iv Access Insert/Monitor (02/18/17 07:49) Oximetry (02/18/17 07:49) Oxygen Administration (02/18/17 07:49) Acetaminophen (Tylenol) (02/18/17 08:00) Sodium Chlor 0.9% 1000 Ml Inj (Ns 1000 M (02/18/17 07:49) Piperacil-Tazo 3.375 Gm Premix (Zosyn 3. (02/18/17 08:45) Vancomycin Inj (Vancomycin Inj) (02/18/17 08:45) Sodium Chlor 0.9% 1000 Ml Inj (Ns 1000 M (02/18/17 08:45) Ct Pulmonary Angiogram (02/18/17 08:31) Iohexol 350 Inj (Omnipaque 350 Inj) (02/18/17 09:05) Acetaminophen (Tylenol) (02/18/17 09:45) Dorzolamide 2% Opth Soln (Trusopt 2% Opt (02/18/17 09:45) Admit Order (Ed Use Only) (02/18/17 ) Labs Laboratory Tests Test 02/18/17 07:55 02/18/17 08:40 White Blood Count 9.9 TH/MM3 Red Blood Count 3.53 MIL/MM3 Hemoglobin 10.7 GM/DL Hematocrit 32.6 % Mean Corpuscular Volume 92.5 FL Mean Corpuscular Hemoglobin 30.3 PG Mean Corpuscular Hemoglobin Concent 32.8 % Red Cell Distribution Width 16.0 % Platelet Count 195 TH/MM3 Mean Platelet Volume 6.6 FL Neutrophils (%) (Auto) 86.6 % Lymphocytes (%) (Auto) 2.7 % Monocytes (%) (Auto) 8.9 % Eosinophils (%) (Auto) 0.9 % Basophils (%) (Auto) 0.9 % Neutrophils # (Auto) 8.5 TH/MM3 Lymphocytes # (Auto) 0.3 TH/MM3 Monocytes # (Auto) 0.9 TH/MM3 Eosinophils # (Auto) 0.1 TH/MM3 Basophils # (Auto) 0.1 TH/MM3 CBC Comment DIFF FINAL Differential Comment Prothrombin Time 10.4 SEC Prothromb Time International Ratio 0.9 RATIO Activated Partial Thromboplast Time 27.5 SEC Blood Urea Nitrogen 28 MG/DL Creatinine 0.84 MG/DL Random Glucose 78 MG/DL Total Protein 6.1 GM/DL Albumin 2.6 GM/DL Calcium Level 8.4 MG/DL Alkaline Phosphatase 70 U/L Aspartate Amino Transf (AST/SGOT) 22 U/L Alanine Aminotransferase (ALT/SGPT) 19 U/L Total Bilirubin 0.7 MG/DL Sodium Level 139 MEQ/L Potassium Level 4.1 MEQ/L Chloride Level 106 MEQ/L Carbon Dioxide Level 22.6 MEQ/L Anion Gap 10 MEQ/L Estimat Glomerular Filtration Rate 88 ML/MIN Lactic Acid Level 4.9 mmol/L Magnesium Level 2.2 MG/DL Total Creatine Kinase 27 U/L Troponin I 0.04 NG/ML Lipase 74 U/L Urine Collection Type CLEAN CATCH Urine Color YELLOW Urine Turbidity CLEAR Urine pH 5.0 Urine Specific [place] 1.016 Urine Protein NEG mg/dL Urine Glucose (UA) NEG mg/dL Urine Ketones NEG mg/dL Urine Occult Blood SMALL Urine Nitrite NEG Urine Bilirubin NEG Urine Leukocyte Esterase NEG Urine RBC 0-3 /hpf Urine Squamous Epithelial Cells 0-5 /hpf Microscopic Urinalysis Comment CULT NOT INDICATED Urine Collection Time 08:40 [facility] Medical Decision Making Medical Screen Exam Complete: Yes Emergency Medical Condition: Yes Medical Record Reviewed: Yes Interpretation(s) ECG shows large artifact due to shivering, there are no evidence of elevation of the ST segment. Differential Diagnosis Sepsis versus electrolyte abnormality versus pneumonia versus UTI Narrative Course Patient is a 81-year-old male who comes in due to shivering. Exam shows patient is actively shivering, there are no other acute abnormalities. IV established, labs sent. Labs show a lactic acid of 4.9. Patient given IV fluids, given broad-spectrum antibiotics. Chest x-ray and urine are negative for infection. CT of the chest is negative for PE. Patient will be admitted for presumed sepsis. Diagnosis Primary Impression: Sepsis Qualified Codes: A41.9 - Sepsis, unspecified organism Admitting Information Admitting Physician Requests: Admit Condition: Stable Urvashi Lewis MD Feb 18, 2017 08:31
[2017-02-18 08:44] LABS: BLOOD, URINE SMALL (NEG); GLUCOSE,URINE NEG (NEG); KETONE, URINE NEG (NEG); NITRITE,URINE NEG (NEG)
[2017-02-18] MEDS ORDERED: VANCOMYCIN INJ 1,000 MG in SODIUM CHLOR 0.9% 250 ML INJ 250 ML IV ONE (08:45)
[2017-02-18] MEDS ORDERED: PIPERACIL-TAZO 3.375 GM PREMIX 50 ML IV ONE (08:45)
--- NOTE | 2017-02-18 08:47 | RADRPT ---
EXAM DATE/TIME: 02/18/2017 08:21 [facility] COMPARISON: CHEST SINGLE AP, September 27, 2016, 11:43. INDICATIONS : Cough/tremors post chemo treatment. MEDICAL HISTORY : Hypertension. Ulcers. Lymphoma. Polio syndrome. PE. Chemotherapy. SURGICAL HISTORY : Cholecystectomy. Infusaport. ENCOUNTER: Initial ACUITY: 1 day PAIN SCORE: 0/10 LOCATION: chest FINDINGS: A single view of the chest demonstrates the lungs to be symmetrically aerated without evidence of mas s, infiltrate or effusion. The cardiomediastinal contours are unremarkable. Osseous structures are intact. Right-sided Port-A-Cath. CONCLUSION: No acute disease. Alexi Chavarria Jr., MD on February 18, 2017 at 8:45 Board Certified Radiologist. This report was verified electronically.
[2017-02-18 08:54] LABS: COMMENT (UR) CULT NOT INDICATED; CULTURE IF INDICATED CULT NOT INDICATED; METHOD OF COLLECTION CLEAN CATCH; RBC, URINE 0-3 /hpf (0-3); SQUAMOUS EPITHELIAL CELL URINE 0-5 /hpf (0-5); URINE COLOR YELLOW (YELLW/STRAW)
[2017-02-18] MEDS ORDERED: IOHEXOL 350 MG/ML 10 ML VIAL (for RAD DIAG) IVCONTRAST ONE (09:05)
--- NOTE | 2017-02-18 09:17 | RADRPT ---
EXAM DATE/TIME: 02/18/2017 08:55 [facility] COMPARISON: CT PULMONARY ANGIOGRAM, September 27, 2016, 12:45. INDICATIONS : Short of breath, cough, general weakness and uncontrollable shaking. IV CONTRAST: 75 cc Omnipaque 350 (iohexol) IV RADIATION DOSE: 11.42 CTDIvol (mGy) MEDICAL HISTORY : Lymphoma. Hypertension. Pulmonary embolism. SURGICAL HISTORY : Cholecystectomy. ENCOUNTER: Initial ACUITY: 1 day PAIN SCALE: 0/10 LOCATION: chest TECHNIQUE: Volumetric scanning of the chest was performed using a pulmonary embolism protocol MIP images were re constructed. Using automated exposure control and adjustment of the mA and/or kV according to patien t size, radiation dose was kept as low as reasonably achievable to obtain optimal diagnostic quality images. DICOM format image data is available electronically for review and comparison. Follow-up recommendations for detected pulmonary nodules are based at a minimum on nodule size and pa tient risk factors according to Fleischner Society Guidelines. FINDINGS: LUNGS: Moderate emphysematous changes are present stable side changes left base without pleural effusion. T here is no central pulmonary emboli. Moderate artery calcifications are noted without pericardial ef fusion. MUSCULOSKELETAL: Within normal limits for patient age. MISCELLANEOUS: The visualized upper abdominal organs demonstrate no acute abnormality. CONCLUSION: Improvement. Right pleural effusion has resolved. Moderate emphysematous changes both lungs Negative for central pulmonary emboli. Significant coronary calcifications. Zeke Waters MD FACR on February 18, 2017 at 9:13 Board Certified Radiologist. This report was verified electronically.
[2017-02-18 10:02] LABS: LACTIC ACID GHOST NOT REPORTABLE
[2017-02-18] MEDS: DORZOLAMIDE 2% OPTH SOLN 200 DROP/10 ML BTLO EACH EYE SCH ×2 (10:16→20:55)
[2017-02-18] MEDS: SODIUM CHLOR 0.45% 1000 ML INJ 1,000 ML IV SCH ×2 (10:19→20:56)
--- NOTE | 2017-02-18 14:12 | HHI.HP ---
[facility] Physician Latoya Pearson MD Admission Diagnosis Sepsis Diagnoses: (1) Lactic acid acidosis Diagnosis: Principal Chief Complaint: Shakes Travel History International Travel<30 Days: No Contact w/Intl Traveler <30 Da: No Traveled to Known Affected Are: No Sepsis Criteria SIRS Criteria (2 or more): Heart rate over 90 Septic Shock Criteria: Lactic acid >=4 History of Present Illness Written by Trace Huang, acting as scribe for Dr. Lomas on 02/18/17 at 14:02. 81-year-old male with known history of hypertension, lymphoma, history of polio recent chemotherapy who presented to the hospital because of shaking. Patient was in a normal state of health until this morning when he woke up and started developing whole body tremors, teeth chattering, states he almost shook himself out of bed. The shaking did not resolve so he called the ambulance. The patient was brought to the ER for evaluation. Patient states that he has been undergoing chemotherapy and his last dose was 3 weeks ago. He indicates that he is been having weekly episodes of these shakes. A week ago the shaking happened and lasted for a couple hours and he went to his oncologist Dr. Callahan, the patient states that he was told that it was likely due to his chemotherapy. However he did start him on Levaquin for possible underlying infection. Patient was doing well until today when he had the shakes again, this time it lasted much longer and more vigorous. The patient does go to his oncologist office at least 2-3 times weekly for IV hydration. He is due for IV hydration today. Now that the shakes have resolved. Patient states that he is back to his normal self. He does have a dry cough that is been going on for one week. He denies any fever, chest pain, shortness of breath, dyspnea, abdominal pain, nausea, vomiting, diaphoresis, diarrhea, constipation. Patient had workup done emergency department patient found to have low-grade temperature 100.0, tachycardia in elevated lactic acid level. Imaging and testing was performed and no etiology of any infection. Repeat lactic acid level was performed and is completely normal. Review of Systems Constitutional: COMPLAINS OF: Chills Respiratory: COMPLAINS OF: Cough Except as stated in HPI: all other systems reviewed are Neg Past Family Social History Past Medical History Hypertension Lymphoma History of ulcerative History of polio Past Surgical History Cholecystectomy Stomach ulcer surgery Reported Medications Reported Meds & Active Scripts Active Reported Dorzolamide Opth Drops (Dorzolamide HCl) 2% Soln 1 Drop EACH EYE BID Allergies: Coded Allergies: No Known Allergies (Unverified , 02/18/17) Family History Reviewed is significant for father with heart disease and COPD Social History Patient denies any tobacco, alcohol or illicit drugs Physical Exam Vital Signs Vital Signs Date Time Temp Pulse Resp B/P (MAP) Pulse Ox O2 Delivery O2 Flow Rate FiO2 02/18/17 12:00 95.4 97 20 124/66 (85) 92 02/18/17 10:24 94 18 98 Nasal Cannula 2.00 02/18/17 10:22 98.4 94 18 118/52 (74) 98 Nasal Cannula 2.00 02/18/17 08:55 100.0 110 18 120/56 (77) 97 Nasal Cannula 2.00 02/18/17 08:02 105 20 145/71 (95) 96 Nasal Cannula 2.00 02/18/17 08:01 97 Nasal Cannula 2.00 02/18/17 07:57 118 95 Room Air 02/18/17 07:51 99.3 114 20 156/73 (100) 95 Physical Exam GENERAL: Well-developed, well-nourished, in no acute distress. alert and orientated HEENT: Head is normocephalic without any lesions or masses noted. Facial features are symmetric. Eyes: Pupils equal round reactive to light. Extraocular muscles are intact. Conjunctivae were clear. Oropharyngeal: Pharynx without any erythema edema. Tongue is midline without deviation. Buccal mucosa is moist without any masses or lesions NECK: Supple without any masses. Trachea midline no deviation. No JVD, no bruits are appreciated CARDIAC: Regular rhythm, regular rate. S1/S2 are heard. No murmurs gallops or rubs. LUNGS: Clear to auscultation bilaterally. No wheeze, rhonchi or rales. No use of accessory muscles on inspiration or expiration. ABDOMEN: Soft, nontender. Nondistended. Bowel sounds heard in all 4 quadrants. No organomegaly or masses. Negative rebound, negative guarding EXTREMITIES: No edema, pulses are equal bilaterally. No cyanosis or clubbing. Left lower extremity obviously smaller than the right NEUROLOGY: Mood and affect appear appropriate. Cranial nerves II through XII grossly intact. Muscle strength 5/5 in bilateral upper extremities and 4/5 in left lower extremity, 5/5 in right lower extremity. Deep tendon reflexes are 2+ in upper and lower extremities bilaterally. Laboratory Laboratory Tests Test 02/18/17 07:55 02/18/17 08:40 02/18/17 10:35 White Blood Count 9.9 Red Blood Count 3.53 Hemoglobin 10.7 Hematocrit 32.6 Mean Corpuscular Volume 92.5 Mean Corpuscular Hemoglobin 30.3 Mean Corpuscular Hemoglobin Concent 32.8 Red Cell Distribution Width 16.0 Platelet Count 195 Mean Platelet Volume 6.6 Neutrophils (%) (Auto) 86.6 Lymphocytes (%) (Auto) 2.7 Monocytes (%) (Auto) 8.9 Eosinophils (%) (Auto) 0.9 Basophils (%) (Auto) 0.9 Neutrophils # (Auto) 8.5 Lymphocytes # (Auto) 0.3 Monocytes # (Auto) 0.9 Eosinophils # (Auto) 0.1 Basophils # (Auto) 0.1 CBC Comment DIFF FINAL Differential Comment Prothrombin Time 10.4 Prothromb Time International Ratio 0.9 Activated Partial Thromboplast Time 27.5 Blood Urea Nitrogen 28 Creatinine 0.84 Random Glucose 78 Total Protein 6.1 Albumin 2.6 Calcium Level 8.4 Alkaline Phosphatase 70 Aspartate Amino Transf (AST/SGOT) 22 Alanine Aminotransferase (ALT/SGPT) 19 Total Bilirubin 0.7 Sodium Level 139 Potassium Level 4.1 Chloride Level 106 Carbon Dioxide Level 22.6 Anion Gap 10 Estimat Glomerular Filtration Rate 88 Lactic Acid Level 4.9 0.9 Total Creatine Kinase 27 Troponin I 0.04 Lipase 74 Urine Collection Type CLEAN CATCH Urine Color YELLOW Urine Turbidity CLEAR Urine pH 5.0 Urine Specific [place] 1.016 Urine Protein NEG Urine Glucose (UA) NEG Urine Ketones NEG Urine Occult Blood SMALL Urine Nitrite NEG Urine Bilirubin NEG Urine Leukocyte Esterase NEG Urine RBC 0-3 Urine Squamous Epithelial Cells 0-5 Microscopic Urinalysis Comment CULT NOT INDICATED Urine Collection Time 08:40 Date/Time Source Procedure Growth Status 02/18/17 08:00 Blood Peripheral Aerobic Blood Culture Pending Received 02/18/17 08:00 Blood Peripheral Anaerobic Blood Culture Pending Received Result Diagram: 02/18/17 0755 02/18/17 [address] Angiography 02/18/1731 Signed Impressions: Service Date/Time: Saturday, February 18, 2017 08:55 - CONCLUSION: Improvement. Right pleural effusion has resolved. Moderate emphysematous changes both lungs Negative for central pulmonary emboli. Significant coronary calcifications. Zeke Waters MD FACR Chest X-Ray 02/18/17 0749 Signed Impressions: Service Date/Time: Saturday, February 18, 2017 08:21 - CONCLUSION: No acute disease. Alexi Chavarria Jr., MD Capfloyd VTE Risk Assessment Caprini VTE Risk Assessment: Mod/High Risk (score >= 2) Caprini Risk Assessment Model Point Value = 1 Point Value = 2 Point Value = 3 Point Value = 5 Age 41-60 Minor surgery BMI > 25 kg/m2 Swollen legs Varicose veins or History of unexplained or recurrent spontaneous Oral contraceptives or hormone replacement Sepsis (< 1 month) Serious lung disease, including pneumonia (< 1 month) Abnormal pulmonary function Acute myocardial infarction Congestive heart failure (< 1 month) History of inflammatory bowel disease Medical patient at bed rest Age 61-74 Arthroscopic surgery Major open surgery (> 45 min) Laparoscopic surgery (> 45 min) Malignancy Confined to bed (> 72 hours) Immobilizing plaster cast Central venous access Age >= 75 History of VTE Family history of VTE Factor V Leiden Prothrombin [id number] Lupus anticoagulant Anticardiolipin antibodies Elevated serum homocysteine Heparin-induced thrombocytopenia Other congenital or acquired thrombophilia Stroke (< 1 month) Elective arthroplasty Hip, pelvis, or leg fracture Acute spinal cord injury (< 1 month) Prophylaxis Regimen Total Risk Factor Score Risk Level Prophylaxis Regimen 0-1 Low Early ambulation 2 Moderate Order ONE of the following: *Sequential Compression Device (SCD) *Heparin 5000 units SQ BID 3-4 Higher Order ONE of the following medications: *Heparin 5000 units SQ TID *Enoxaparin/Lovenox 40 mg SQ daily (WT < 150 kg, CrCl > 30 mL/min) *Enoxaparin/Lovenox 30 mg SQ daily (WT < 150 kg, CrCl > 10-29 mL/min) *Enoxaparin/Lovenox 30 mg SQ BID (WT < 150 kg, CrCl > 30 mL/min) AND/OR *Sequential Compression Device (SCD) 5 or more Highest Order ONE of the following medications: *Heparin 5000 units SQ TID (Preferred with Epidurals) *Enoxaparin/Lovenox 40 mg SQ daily (WT < 150 kg, CrCl > 30 mL/min) *Enoxaparin/Lovenox 30 mg SQ daily (WT < 150 kg, CrCl > 10-29 mL/min) *Enoxaparin/Lovenox 30 mg SQ BID (WT < 150 kg, CrCl > 30 mL/min) AND *Sequential Compression Device (SCD) Assessment and Plan Assessment and Plan Lactic acid acidosis with tachycardia, afebrile Patient who has known lymphoma undergoing chemotherapy 3 weeks ago, has had weekly shaking episodes, contributed to chemotherapy per oncologist. Urinalysis clear, chest x-ray independently reviewed by Dr. Lomas shows no acute findings, CTA chest shows improvement from previous CT, no infectious etiology at this time Status post vancomycin, Zosyn in emergency department Continue to follow blood cultures Repeat lactic acid level normal at 0.9 Lymphoma Patient continue follow up with his oncologist Patient does undergo IV hydration 2-3 times weekly, today is the day he was scheduled, will continue IV hydration Post polio syndrome Physical therapy evaluation This note was transcribed by mary Huang. IJoshua, personally performed the history, physical exam, and medical decision making; and confirmed the accuracy of information in the transcribed note. Authenticated by oJshua Lomas on 02/18/17 at 14:20. Physician Certification 2 Midnight Certification Type: Continued Stay Order for Inpatient Services The services are ordered in accordance with Medicare regulations or non- Medicare payer requirements, as applicable. In the case of services not specified as inpatient-only, they are appropriately provided as inpatient services in accordance with the 2-midnight benchmark. Estimated LOS (days): 1 days is the estimated time the patient will need to remain in the hospital, assuming treatment plan goals are met and no additional complications. Post-Hospital Plan: Not yet determined Trace Huang Feb 18, 2017 14:12 Joshua Lomas MD Feb 21, 2017 08:44
--- NOTE | 2017-02-18 14:50 | EKG ---
Date Performed: 02/18/2017 Time Performed: 08:05:33 PTAGE: 81 years EKG: SUPRAVENTRICULAR TACHYCARDIA BASELINE ARTIFACT, DIFFICULT TO DETERMINE RHYTHM ABNORMAL RHYT ECG PREVIOUS TRACING : 09/27/2016 11.16 Compared to the previous tracing, baseline artifact makes i t difficult to determine rhythm for comparison DOCTOR: Justin Hector Interpretating Date/Time 02/18/2017 14:49:54
[2017-02-19] VITALS: BP 116/69; PULSE 73; RESP 20; TEMP 98.8; O2SAT 92
[2017-02-19 08:00] VITALS: BP 142/74; PULSE 94; RESP 18; TEMP 98.5; O2SAT 88
[2017-02-19] MEDS: DORZOLAMIDE 2% OPTH SOLN 200 DROP/10 ML BTLO EACH EYE SCH (08:59)
[2017-02-19] MEDS ORDERED: INFLUENZA VIRUS VACCINE (QUADRIVALENT) 0.5 ML SYR IM ONE (10:00)
[2017-02-19 12:00] VITALS: BP 156/72; PULSE 95; RESP 16; TEMP 98; O2SAT 91
[2017-02-19] MEDS: SODIUM CHLOR 0.45% 1000 ML INJ 1,000 ML IV SCH (12:48)
--- NOTE | 2017-02-19 13:09 | HHI.DCPOC ---
Discharge Care Plan Diagnosis: (1) Lactic acid acidosis Goals to Promote Your Health * To prevent worsening of your condition and complications * To maintain your health at the optimal level Directions to Meet Your Goals Take your medications as prescribed Follow your dietary instruction Follow activity as directed Keep your appointments as scheduled Take your immunizations and boosters as scheduled If your symptoms worsen call your PCP, if no PCP go to Urgent Care Center or Emergency Room Smoking is Dangerous to Your Health. Avoid second hand smoke Call the 24-hour hour crisis hotline for domestic abuse at Joshua Lomas MD Feb 19, 2017 13:09
--- NOTE | 2017-02-19 13:10 | HHI.FF ---
Face to Face Verification Diagnosis: (1) Post-polio syndrome Physical Therapy Order: Evaluate and Treat Occupational Therapy Order: Evaluate and Treat Home Health Nursing Order: Medical education I have seen patient Rush Rviera on 02/19/17. My clinical findings support the need for the requested home health care services because: High risk of falls I certify that my clinical findings support that this patient is homebound because: Unsteady gait/balance Unable to use public transportation Joshua Lomas MD Feb 19, 2017 13:10
[2017-02-19] MEDS ORDERED: PROP10TA6 PO (13:11)
--- NOTE | 2017-02-19 13:11 | HHI.DS ---
Discharge Summary Admission Date Feb 18, 2017 at 10:00 Discharge Date: Feb 19, 2017 Admitting Diagnosis lactic acidosis (1) Lactic acid acidosis ICD Code: E87.2 - Acidosis Diagnosis: Principal Procedures none Brief History - From Admission Written by Trace Huang, acting as scribe for Dr. Lomas on 02/18/17 at 14:02. 81-year-old male with known history of hypertension, lymphoma, history of polio recent chemotherapy who presented to the hospital because of shaking. Patient was in a normal state of health until this morning when he woke up and started developing whole body tremors, teeth chattering, states he almost shook himself out of bed. The shaking did not resolve so he called the ambulance. The patient was brought to the ER for evaluation. Patient states that he has been undergoing chemotherapy and his last dose was 3 weeks ago. He indicates that he is been having weekly episodes of these shakes. A week ago the shaking happened and lasted for a couple hours and he went to his oncologist Dr. Callahan, the patient states that he was told that it was likely due to his chemotherapy. However he did start him on Levaquin for possible underlying infection. Patient was doing well until today when he had the shakes again, this time it lasted much longer and more vigorous. The patient does go to his oncologist office at least 2-3 times weekly for IV hydration. He is due for IV hydration today. Now that the shakes have resolved. Patient states that he is back to his normal self. He does have a dry cough that is been going on for one week. He denies any fever, chest pain, shortness of breath, dyspnea, abdominal pain, nausea, vomiting, diaphoresis, diarrhea, constipation. Patient had workup done emergency department patient found to have low-grade temperature 100.0, tachycardia in elevated lactic acid level. Imaging and testing was performed and no etiology of any infection. Repeat lactic acid level was performed and is completely normal. CBC/BMP: 02/18/17 0755 02/18/17 0755 Significant Findings Laboratory Tests Test 02/18/17 07:55 02/18/17 08:40 02/18/17 10:35 Red Blood Count 3.53 MIL/MM3 (4.50-5.90) Hemoglobin 10.7 GM/DL (13.0-17.0) Hematocrit 32.6 % (39.0-51.0) Mean Platelet Volume 6.6 FL (7.0-11.0) Neutrophils (%) (Auto) 86.6 % (16.0-70.0) Lymphocytes (%) (Auto) 2.7 % (9.0-44.0) Monocytes (%) (Auto) 8.9 % (0.0-8.0) Neutrophils # (Auto) 8.5 TH/MM3 (1.8-7.7) Lymphocytes # (Auto) 0.3 TH/MM3 (1.0-4.8) Blood Urea Nitrogen 28 MG/DL (7-18) Total Protein 6.1 GM/DL (6.4-8.2) Albumin 2.6 GM/DL (3.4-5.0) Calcium Level 8.4 MG/DL (8.5-10.1) Estimat Glomerular Filtration Rate 88 ML/MIN (>89) Lactic Acid Level 4.9 mmol/L (0.4-2.0) Total Creatine Kinase 27 U/L (39-308) Urine Occult Blood SMALL (NEG) Imaging Last Impressions CT Angiography 02/18/17 0831 Signed Impressions: Service Date/Time: Saturday, February 18, 2017 08:55 - CONCLUSION: Improvement. Right pleural effusion has resolved. Moderate emphysematous changes both lungs Negative for central pulmonary emboli. Significant coronary calcifications. Zeke Waters MD FACR Chest X-Ray 02/18/17 0749 Signed Impressions: Service Date/Time: Saturday, February 18, 2017 08:21 - CONCLUSION: No acute disease. Alexi Chavarria Jr., MD PE at Discharge Unlabored breathing, coarse breath sounds bilaterally, regular rate and rhythm for heart sounds Hospital Course Patient's tremors had stopped by the time he got to the hospital. He was continued on IV fluids; given that he had no true fever and no source of infection he was not continued on antibiotics despite receiving initial doses in the ER. His lactic acid normalized and he remained asymptomatic. He was to be discharged within the first 8 hours of admission and the patient demonstrated good ambulation with his walker and no recurring acute symptoms. Patient himself said he was ready to go home that in the last 15 minutes of his initially turned hospitalization the patient says he spoke to his family and then started feeling weaker than usual. The next morning he reportedly felt better, tolerated by mouth intake well. He remained afebrile throughout his hospitalization and is clinically stable for discharge. He is told to follow- up with his oncologist. He was informed that he could start taking propranolol as a prescription upon discharge should he feel that the tremors should come back and ultimately have this addressed by his PCP or oncologist. Pt Condition on Discharge: Stable Discharge Disposition: Discharge Home Discharge Time: <= 30 minutes Discharge Instructions Follow up Referrals: Oncology - 1 Week PCP Follow-up - 1 Week New Medications: Propranolol (Propranolol) 10 Mg Tab 10 MG PO Q12HR for tremors, #60 TAB 0 Refills Joshua Lomas MD Feb 19, 2017 13:11
--- NOTE | 2017-02-19 13:35 | HHI.DCPOC ---
Discharge Care Plan Additional Problems lactic acidosis, tremors Goals to Promote Your Health * To prevent worsening of your condition and complications * To maintain your health at the optimal level Directions to Meet Your Goals Take your medications as prescribed Follow your dietary instruction Follow activity as directed Keep your appointments as scheduled Take your immunizations and boosters as scheduled If your symptoms worsen call your PCP, if no PCP go to Urgent Care Center or Emergency Room Smoking is Dangerous to Your Health. Avoid second hand smoke Call the 24-hour hour crisis hotline for domestic abuse at Joshua Lomas MD Feb 19, 2017 13:35
--- NOTE | 2017-02-19 13:47 | EKG ---
Date Performed: 02/18/2017 Time Performed: 13:50:55 PTAGE: 81 years EKG: NORMAL Sinus rhythm WITH PACs ABNORMAL RHYTHM ECG Compared to PREVIOUS TRACING , there has been no gross change but the prior tracing was technically p oor and an accurate comparison cannot be made. PREVIOUS TRACIN02/18/2017 08.05 DOCTOR: Adilene Winn Interpretating Date/Time 02/19/2017 13:46:42
[2017-02-28] MEDS ORDERED: LEVA500T20 PO (18:07)
== END 2017-02-19 13:56 | disposition home or self-care (01) ==
LOC: PHED 07:46 → INTOOBSV 10:00 → PHEDA 10:00 → PH3B 11:14
PROVIDERS: ADMIT Hospitalist; ATTEND Hospitalist
DX: E87.2 Acidosis (principal); C85.90 Non-Hodgkin lymphoma, unspecified, unspecified site; G14 Postpolio syndrome; I10 Essential (primary) hypertension; R00.0 Tachycardia, unspecified; R94.31 Abnormal electrocardiogram [ECG] [EKG]; Z87.11 Personal history of peptic ulcer disease
CPT/HCPCS: 71010; 71275; 80053; 81001; 82550; 83605; 83690; 83735; 84484; 85025; 85610; 85730; 87040; 93005; 96361; 96365; 99285; G0378; J2543; J3370; J7030; J7050; Q9967